=== PATIENT | male | born 1955 | race Caucasian/White ===

== ENCOUNTER → 2023-02-01 12:52 | Outpatient (REF) | payer MEDICARE, SELFPAY ==
--- NOTE | 2023-02-01 12:58 | CA_ITS ---
Transthoracic Echocardiogram Patient (Last, First, Middle): King Viera, Gender: Male Date of : 1955 Age: 67 Procedure Date: 02/01/2023 Procedure Type: Transthoracic Echocardiogram Location: [place] Height: 180.34 cm Weight: 97.98 kg BSA: 2.18 m2 Heart Rate: bpm BP: 146 / 60 mmHg Scrap Carrier: TO Referring MD: Vale BRITTON Installation Engineer: Kai Diane MD Symptoms: EPSTEIN R06.09 Study Quality: Fair/Contrast ECG Rhythm: Sinus Conclusions: - 1. Normal LV systolic function with impaired relaxation filling pattern 2. Limited visualization cardiac valves with normal cardiac valvular Doppler Findings Procedure Information Contrast agent, definity, is being given per protocol without apparent complications. Left Ventricle Normal left ventricular size and systolic function. There is mildly increased left ventricular wall thickness. The visually estimated ejection fraction is between 60-65%. Spectral Doppler is indicative of an impaired relaxation filling pattern. E/E prime ratio is between 8 and 15 consistent with indeterminate filling pressures. Right Ventricle The right ventricle was not well visualized. Atria The left atrium is likely dilated. Interatrial shunt cannot be excluded. The right atrium was not well visualized. Aortic Valve The aortic valve structure and function is likely normal. There is no aortic valve stenosis. There is no aortic valve regurgitation. Mitral Valve Likely normal mitral valve structure and function. There is trace mitral valve regurgitation. There is no mitral valve stenosis. Pulmonic Valve The pulmonic valve was not well visualized. Tricuspid Valve The tricuspid valve was not well visualized. Tricuspid regurgitation envelope is inadequate for calculation of right ventricular systolic pressure. Normal right atrial pressure. Great Vessels All visible segments of the aorta are normal in size. The pulmonary artery was not well visualized. Venous The inferior vena cava is normal in size and collapses greater than 50% with inspiration. Pericardium/Pleural There is no evidence of pericardial effusion. Prior Study Comparison No prior study available for comparison. Measurements 2D Linear Measurements IVSd: 1.35 0.6-0.9/0.6-1.0 cm LVIDd: 4.53 3.9-5.3/4.2-5.9 cm LVIDd Index: 2.08 2.4-3.2/2.2-3.1 cm/m2 LVIDs: 2.62 2.0-3.6 cm LVPWd: 1.11 0.7-1.1 cm LA Diam: 3.80 2.7-3.8/3.0-4.0 cm LAIDs Index: 1.74 1.5-2.3 cm/m2 LV Mass: 258.52 67-162/88-224 g LV Mass Index: 118.59 43-95/49-115 g/m2 LVOT Diam: 2.10 3.0+(-)1.3 cm 2D Systolic Function EF 4C: 65.20 >55% Mitral Valve MV VTI: 0.44 MV Pk Khadar: 1.26 MV Mn Khadar: 0.80 MV Pk Grad: 6.00 MV Mn Grad: 3.00 MV Pk E: 1.02 MV PK A: 1.15 MV Decel Time: 223.00 E/A: 0.90 E'Lateral: 7.94 E'Medial: 6.42 E/E' Med: 15.90 E/E' Lat: 12.80 PHT: 65.00 MVA PHT: 3.38 MVA Continuity: 2.11 Decel Billings: 4.56 Aortic Valve AoV Pk Khadar: 1.89 AoV Mn Khadar: 1.15 AoV VTI: 0.39 AoV Pk Grad: 14.00 Aov Mn Grad: 6.00 SHAW Cont.VTI: 2.37 LVOT LVOT Pk Khadar: 1.31 LVOT Mn Khadar: 0.78 LVOT VTI: 0.27 LVOT Pk Grad: 7.00 LVOT Mn Grad: 3.00 LVOT Diam: 2.10 LVOT Area: 3.46 Diastolic Function MV Pk E: 1.02 MV Pk A: 1.15 E/A: 0.90 E'Medial: 6.42 E/E' Med: 15.90 E' Laterial: 7.94 E/E' Lat: 12.80 Right Ventricle TAPSE (mm): 22.30 TVS' Khadar: 13.10 Tricuspid Valve TR Pk Khadar: 2.57 TR Pk Grad: 26.00 Great Vessels Aorta Sinus of Valsalva: 3.05 2.0-3.5 cm Ao Asc: 3.40 2.1-3.4 cm Updated in Other Vendor System with Status of Final Kai Diane MD electronically signed on 02/01/2023 3:08:07 PM with status of Final
== END ==
LOC: HO.CARD 12:52
PROVIDERS: PCP Nurse Practitioner Family; Visit Provider Nurse Practitioner Family
DX: R06.09 Other forms of dyspnea (principal)
CPT/HCPCS: 93306; Q9957